=== PATIENT | male | born 1980 | race Caucasian/White ===

== ENCOUNTER 2016-09-14 20:25 | Emergency (ER) | payer OTHER ==
[2016-09-14 20:36] VITALS: BP 178/79; PULSE 94; RESP 18; TEMP 97.7
--- NOTE | 2016-09-14 21:00 | ED ---
Alcohol HPI - General Chief Complaint: Alcohol Stated Complaint: fall/vomiting/ETOH Time Seen by Provider: 09/14/16 20:30 Source: patient, RN notes reviewed Mode of arrival: EMS Limitations: no limitations - History of Present Illness Initial Comments: 35 yo male presents to the ER with cc of alcohol. The patient was found to be intoxicated. Patient was brought in by EMS due to friends calling due to the patient being intoxicated. Patient has no complaints. Patient's family is at bedside. - Related Data Home Medications Medication Instructions Recorded Confirmed No Known Home Medications [No 09/14/16 09/14/16 Known Home Medications] Allergies Allergy/AdvReac Type Severity Reaction Status Date / Time acetaminophen [From Tylenol] Allergy Altered Verified 09/14/16 20:36 Mental Status Review of Systems ROS Statement: Those systems with pertinent positive or pertinent negative responses have been documented in the HPI. ROS Other: All systems not noted in ROS Statement are negative. Past Medical History Past Medical History: Hypertension History of Any Multi-Drug Resistant Organisms: None Reported Past Surgical History: No Surgical Hx Reported Past Psychological History: No Psychological Hx Reported Smoking Status: Current every day smoker Past Alcohol Use History: Occasional Past Drug Use History: None Reported General Exam Limitations: no limitations General appearance: alert, in no apparent distress Head exam: Present: other (Does have an abrasion to the forehead.) Eye exam: Present: normal appearance, PERRL, EOMI. Absent: scleral icterus, conjunctival injection, periorbital swelling ENT exam: Present: normal exam, mucous membranes moist Neck exam: Present: normal inspection. Absent: tenderness, meningismus, lymphadenopathy Respiratory exam: Present: normal lung sounds bilaterally. Absent: respiratory distress, wheezes, rales, rhonchi, stridor Cardiovascular Exam: Present: regular rate, normal rhythm, normal heart sounds. Absent: systolic murmur, diastolic murmur, rubs, gallop, clicks Neurological exam: Present: alert, oriented X3 Psychiatric exam: Present: agitated Skin exam: Present: warm, dry Course Vital Signs 09/14/16 20:32 Temperature 97.7 F Pulse Rate 94 Respiratory 18 Rate Blood Pressure 178/79 O2 Sat by Pulse 94 L Oximetry Medical Decision Making - Medical Decision Making 35-year-old male presents with chief complaint of alcohol use. At this time patient does have an abrasion to the head and he does not know if he hit his head or not. We did offer a CAT scan. Patient became very agitated and angry upon this. Family states that they would like to take him home. At this time family does take responsibility for the patient for the mother. We states that there was a risk to leaving. We discussed this could lead to possible if not serious brain injury if the hand injury to cause any internal damage which we are unable to tell due to the fact we do not have a CAT scan. Family stated they understood the risks that they still would like to take the patient home. At this time they did leave AGAINST MEDICAL ADVICE. Disposition Clinical Impression: Alcoholic intoxication Disposition: Left Against Medical Advice
== END 2016-09-14 21:02 | disposition left against medical advice (07) ==
LOC: EC 20:25
DX: F10.129 Alcohol abuse with intoxication, unspecified (principal); S00.81XA Abrasion of other part of head, initial encounter; F17.200 Nicotine dependence, unspecified, uncomplicated; Z88.6 Allergy status to analgesic agent; W01.10XA Fall on same level from slipping, tripping and stumbling with subsequent striking against unspecified object, initial encounter
CPT/HCPCS: 99284

== ENCOUNTER 2019-02-22 14:13 | Emergency (ER) | payer OTHER ==
[2019-02-22 14:23] VITALS: TEMP 98
[2019-02-22 15:16] VITALS: RESP 18
--- NOTE | 2019-02-22 15:30 | XR ---
EXAMINATION TYPE: XR chest 2V DATE OF EXAM: 02/22/2019 COMPARISON: NONE HISTORY: Chest pain and dizziness. Dysrhythmia. TECHNIQUE: Frontal and lateral views of the chest are obtained. FINDINGS: Overlying EKG leads are seen. Low lung volumes are noted. There is no focal air space opac ity, pleural effusion, or pneumothorax seen. The cardiac silhouette size is within normal limits. Ex aggerated kyphosis with multilevel spurring. IMPRESSION: No acute cardiopulmonary process.
[2019-02-22 15:34] LABS: INR 0.9 (<1.2); Partial Thromboplastin Time 25.1 sec (22.0-30.0); Prothrombin Time 9.8 sec (9.0-12.0)
[2019-02-22 15:35] LABS: ALT 31 U/L (21-72); AST 27 U/L (17-59); African American GFR (CKD) >90 (>60 ml/min/1.73 sqM); Albumin 3.5 g/dL (3.5-5.0); Alkaline Phosphatase 70 U/L (38-126); Anion Gap 5 mmol/L; Blood Urea Nitrogen 14 mg/dL (9-20); Carbon Dioxide 27 mmol/L (22-30); Chloride 106 mmol/L (98-107); Glucose 140 mg/dL (74-99); Magnesium 2.1 mg/dL (1.6-2.3); Potassium 4.4 mmol/L (3.5-5.1); Sodium 138 mmol/L (137-145); Total Bilirubin 0.3 mg/dL (0.2-1.3); Total Protein 6.9 g/dL (6.3-8.2)
[2019-02-22 15:36] LABS: Basophils # (A) 0.1 k/uL (0-0.2); Basophils % (A) 1 %; Eosinophils # (A) 0.2 k/uL (0-0.7); Eosinophils % (A) 2 %; HCT 48.7 % (39.0-53.0); HGB 17.3 gm/dL (13.0-17.5); Lymphocytes # (A) 1.9 k/uL (1.0-4.8); Lymphocytes % (A) 23 %; MCH 30.5 pg (25.0-35.0); MCHC 35.6 g/dL (31.0-37.0); MCV 85.5 fL (80.0-100.0); Mean Platelet Volume 6.2; Monocytes # (A) 0.4 k/uL (0-1.0); Monocytes % (A) 5 %; Neutrophils # (A) 5.5 k/uL (1.3-7.7); Neutrophils % (A) 67 %; Platelet Count 239 k/uL (150-450); RBC 5.69 m/uL (4.30-5.90); RDW 12.4 % (11.5-15.5); WBC 8.2 k/uL (3.8-10.6)
--- NOTE | 2019-02-22 15:46 | CT ---
EXAMINATION TYPE: CT brain wo con DATE OF EXAM: 02/22/2019 COMPARISON: NONE HISTORY: Headache without injury CT DLP: 1158.4 mGycm. Automated Exposure Control for Dose Reduction was Utilized. TECHNIQUE: CT scan of the head is performed without contrast. FINDINGS: There is no acute intracranial hemorrhage, mass effect, or midline shift identified. The ventricles and sulci are within normal limits in size. The globes are intact. Mild mucosal thickeni ng is seen within the ethmoid sinuses and maxillary sinuses. Remaining paranasal sinuses and mastoid air cells are well aerated. IMPRESSION: No acute intracranial hemorrhage, mass effect, or midline shift is seen. Mild paranasal sinus disease.
[2019-02-22] MEDS ORDERED: METOCLOPRAMIDE 5 MG/ML 2 ML VIAL IVP STA (16:21)
[2019-02-22] MEDS ORDERED: KETOROLAC 30 MG/ML 1 ML VIAL IVP STA (16:21)
[2019-02-22] MEDS ORDERED: diphenhydrAMINE 50 MG/ML 1 ML VIAL IVP STA (16:21)
[2019-02-22] MEDS ORDERED: hydrALAZINE HCL 20 MG/ML 1 ML VIAL IVP STA (16:31)
--- NOTE | 2019-02-22 16:31 | ED ---
Arrhythmia/Palpitations HPI - General Chief Complaint: Arrhythmia/Palpitations Stated Complaint: Headache, Heart Palpitations, Dizzy Time Seen by Provider: 02/22/19 14:41 Source: patient Mode of arrival: wheelchair Limitations: no limitations - History of Present Illness Initial Comments: 38-year-old male presenting for multiple complaints. Patient states since Friday he has had a dull aching headache and left-sided as well as palpitations that worsen when lying flat at night. Patient denies any chest pain he denies shortness of breath does admit to lightheaded sensation on and off which she did experience today while at work. Patient denies any chest pressure while ambulating he denies any jaw pain or upper extremity paresthesias. Patient de nies any nausea or epigastric pain. Patient has a visual changes diplopia of rest or symptoms fevers neck stiffness. Patient denies any injury or trauma to the head. Patient denies history of diabetes or hypertension however is found to be hypertensive upon arrival. Patient denies any decrease in urine output abdominal pain or masses. Patient denies any weakness of the upper or lower extremities or sensation deficits. When symptoms are persistent today and felt as best he presents emergency room for further evaluation. Upon arrival patient blood pressure elevated heart rate elevated however patient appears well signs of acute distress. - Related Data Home Medications Medication Instructions Recorded Confirmed Ascorbic Acid [Vitamin C] 500 mg PO DAILY 02/22/19 02/22/19 Cinnamon Bark [Cinnamon] 500 mg PO DAILY 02/22/19 02/22/19 Garlic 1 tab PO DAILY 02/22/19 02/22/19 Ibuprofen [Advil] 600 mg PO Q8HR PRN 02/22/19 02/22/19 Multivitamins, Thera [Multivitamin 1 tab PO DAILY 02/22/19 02/22/19 (formulary)] Allergies Allergy/AdvReac Type Severity Reaction Status Date / Time acetaminophen [From Tylenol] Allergy Altered Verified 02/22/19 14:23 Mental Status Review of Systems ROS Statement: Those systems with pertinent positive or pertinent negative responses have been documented in the HPI. ROS Other: All systems not noted in ROS Statement are negative. Past Medical History Past Medical History: Hypertension History of Any Multi-Drug Resistant Organisms: None Reported Past Surgical History: No Surgical Hx Reported Past Psychological History: No Psychological Hx Reported Smoking Status: Current every day smoker Past Alcohol Use History: Occasional Past Drug Use History: None Reported General Exam - General Exam Comments Initial Comments: General: The patient is awake and alert, in no distress, and does not appear acutely ill. Eye: +3 mm pupils are equal, round and reactive to light, extra-ocular movements are intact. No nystagmus. There is normal conjunctiva bilaterally. No signs of icterus. Ears, nose, mouth and throat: There are moist mucous membranes and no oral lesions. Neck: The neck is supple, there is no tenderness or JVD. Cardiovascular: There is a regular rate and rhythm. No murmur, rub or gallop is appreciated. Respiratory: Lungs are clear to auscultation, respirations are non-labored, breath sounds are equal. No wheezes, stridor, rales, or rhonchi. Gastrointestinal: Soft, non-distended, non-tender abdomen without masses or organomegaly noted. There is no rebound or guarding present. No masses. Musculoskeletal: Normal ROM, no tenderness. Strength 5/5 of the UE and LE b/l. Sensation intact. Radial and DP pulses equal bilaterally 2+. Neurological: A&O x 3. CN II-XII intact, There are no obvious motor or sensory deficits. Coordination appears grossly intact. Speech is normal. Skin: Skin is warm and dry and no rashes or lesions are noted. Psychiatric: Cooperative, appropriate mood & affect, normal judgment. Limitations: no limitations Course Vital Signs 02/22/19 02/22/19 02/22/19 14:21 15:15 17:00 Temperature 98.0 F Pulse Rate 102 H 76 103 H Respiratory 20 18 18 Rate Blood Pressure 161/103 176/114 137/99 O2 Sat by Pulse 98 97 98 Oximetry 02/22/19 17:40 Temperature 98.0 F Pulse Rate 90 Respiratory 18 Rate Blood Pressure 160/98 O2 Sat by Pulse 98 Oximetry EKG Findings - EKG Comments: EKG Findings:: Ventricular rate 89 bpm, IA interval 138 ms, which faith 90 ms the QT/QTC 364/442. This is normal sinus rhythm no ST elevation or depression. EKG personally reviewed and interpreted-this EKG was reviewed and interpreted by my attending provider Dr. Newell Medical Decision Making - Medical Decision Making Well-appearing 38-year-old male presented emergency department for evaluation of headache palpitations since Friday. Patient denies chest pain or shortness of breath. Patient does admit to occasional lightheaded sensation. His symptoms occurring at night. Troponin negative. No ST elevation or depression on EKG. Patient had CT of the brain obtained revealing no signs of acute intracranial process. Patient is no meningeal irritation signs of focal neurological deficit. Chest x-ray clear no murmur on examination no lower extremity edema. I discussed the case including vital signs, EKG laboratory studies history past medical history with my attending provider. At this time we do feel patient is stable for discharge with outpatient primary care follow-up I did recommend a Holter monitor for these episodes. Patient states he'll follow up with his primary care provider tomorrow. Patient is to immediately return to emergency department if he develops symptoms again. Patient was symptom-free upon discharge. - Lab Data Result diagrams: 02/22/19 15:15 02/22/19 15:15 Lab Results 02/22/19 02/22/19 02/22/19 Range/Units 15:15 15:15 15:15 WBC 8.2 (3.8-10.6) k/uL RBC 5.69 (4.30-5.90) m/uL Hgb 17.3 (13.0-17.5) gm/dL Hct 48.7 (39.0-53.0) % MCV 85.5 (80.0-100.0) fL MCH 30.5 (25.0-35.0) pg MCHC 35.6 (31.0-37.0) g/dL RDW 12.4 (11.5-15.5) % Plt Count 239 (150-450) k/uL Neutrophils % 67 % Lymphocytes % 23 % Monocytes % 5 % Eosinophils % 2 % Basophils % 1 % Neutrophils # 5.5 (1.3-7.7) k/uL Lymphocytes # 1.9 (1.0-4.8) k/uL Monocytes # 0.4 (0-1.0) k/uL Eosinophils # 0.2 (0-0.7) k/uL Basophils # 0.1 (0-0.2) k/uL PT 9.8 (9.0-12.0) sec INR 0.9 (<1.2) APTT 25.1 (22.0-30.0) sec Sodium 138 (137-145) mmol/L Potassium 4.4 (3.5-5.1) mmol/L Chloride 106 (98-107) mmol/L Carbon Dioxide 27 (22-30) mmol/L Anion Gap 5 mmol/L BUN 14 (9-20) mg/dL Creatinine 1.01 (0.66-1.25) mg/dL Est GFR (CKD-EPI)AfAm >90 (>60 ml/min/1.73 sqM) Est GFR (CKD-EPI)NonAf >90 (>60 ml/min/1.73 sqM) Glucose 140 H (74-99) mg/dL Calcium 9.0 (8.4-10.2) mg/dL Magnesium 2.1 (1.6-2.3) mg/dL Total Bilirubin 0.3 (0.2-1.3) mg/dL AST 27 (17-59) U/L ALT 31 (21-72) U/L Alkaline Phosphatase 70 (38-126) U/L Troponin I (0.000-0.034) ng/mL Total Protein 6.9 (6.3-8.2) g/dL Albumin 3.5 (3.5-5.0) g/dL TSH 0.920 (0.465-4.680) mIU/L Urine Color Urine Appearance (Clear) Urine pH (5.0-8.0) Ur Specific [place] (1.001-1.035) Urine Protein (Negative) Urine Glucose (UA) (Negative) Urine Ketones (Negative) Urine Blood (Negative) Urine Nitrite (Negative) Urine Bilirubin (Negative) Urine Urobilinogen (<2.0) mg/dL Ur Leukocyte Esterase (Negative) Urine Opiates Screen (NotDetected) Ur Oxycodone Screen (NotDetected) Urine Methadone Screen (NotDetected) Ur Propoxyphene Screen (NotDetected) Ur Barbiturates Screen (NotDetected) U Tricyclic Antidepress (NotDetected) Ur Phencyclidine Scrn (NotDetected) Ur Amphetamines Screen (NotDetected) U Methamphetamines Scrn (NotDetected) U Benzodiazepines Scrn (NotDetected) Urine Cocaine Screen (NotDetected) U Marijuana (THC) Screen (NotDetected) 02/22/19 02/22/19 Range/Units 15:15 17:30 WBC (3.8-10.6) k/uL RBC (4.30-5.90) m/uL Hgb (13.0-17.5) gm/dL Hct (39.0-53.0) % MCV (80.0-100.0) fL MCH (25.0-35.0) pg MCHC (31.0-37.0) g/dL RDW (11.5-15.5) % Plt Count (150-450) k/uL Neutrophils % % Lymphocytes % % Monocytes % % Eosinophils % % Basophils % % Neutrophils # (1.3-7.7) k/uL Lymphocytes # (1.0-4.8) k/uL Monocytes # (0-1.0) k/uL Eosinophils # (0-0.7) k/uL Basophils # (0-0.2) k/uL PT (9.0-12.0) sec INR (<1.2) APTT (22.0-30.0) sec Sodium (137-145) mmol/L Potassium (3.5-5.1) mmol/L Chloride (98-107) mmol/L Carbon Dioxide (22-30) mmol/L Anion Gap mmol/L BUN (9-20) mg/dL Creatinine (0.66-1.25) mg/dL Est GFR (CKD-EPI)AfAm (>60 ml/min/1.73 sqM) Est GFR (CKD-EPI)NonAf (>60 ml/min/1.73 sqM) Glucose (74-99) mg/dL Calcium (8.4-10.2) mg/dL Magnesium (1.6-2.3) mg/dL Total Bilirubin (0.2-1.3) mg/dL AST (17-59) U/L ALT (21-72) U/L Alkaline Phosphatase (38-126) U/L Troponin I <0.012 (0.000-0.034) ng/mL Total Protein (6.3-8.2) g/dL Albumin (3.5-5.0) g/dL TSH (0.465-4.680) mIU/L Urine Color Yellow Urine Appearance Clear (Clear) Urine pH 6.0 (5.0-8.0) Ur Specific [place] 1.020 (1.001-1.035) Urine Protein Negative (Negative) Urine Glucose (UA) Negative (Negative) Urine Ketones Negative (Negative) Urine Blood Negative (Negative) Urine Nitrite Negative (Negative) Urine Bilirubin Negative (Negative) Urine Urobilinogen 2.0 (<2.0) mg/dL Ur Leukocyte Esterase Negative (Negative) Urine Opiates Screen Not Detected (NotDetected) Ur Oxycodone Screen Not Detected (NotDetected) Urine Methadone Screen Not Detected (NotDetected) Ur Propoxyphene Screen Not Detected (NotDetected) Ur Barbiturates Screen Not Detected (NotDetected) U Tricyclic Antidepress Not Detected (NotDetected) Ur Phencyclidine Scrn Not Detected (NotDetected) Ur Amphetamines Screen Not Detected (NotDetected) U Methamphetamines Scrn Not Detected (NotDetected) U Benzodiazepines Scrn Not Detected (NotDetected) Urine Cocaine Screen Not Detected (NotDetected) U Marijuana (THC) Screen Not Detected (NotDetected) Disposition Clinical Impression: Heart palpitations, Elevated blood pressure reading, Elevated glucose, Headache Disposition: HOME SELF-CARE Condition: Good Instructions (If sedation given, give patient instructions): Heart Palpitations (ED) Additional Instructions: Please use medication as discussed. Please follow-up with family doctor in the next 2 days, recommend cardiology evaluation for stress test. Please return to emergency room if the symptoms increase or worsen or for any other concerns. Is patient prescribed a controlled substance at d/c from ED?: No Referrals: None,Stated [Primary Care Provider] - [facility] days [facility] - 1-2 days Time of Disposition: 17:28
[2019-02-22 17:41] VITALS: BP 160/98; PULSE 90
[2019-02-22 17:41] LABS: Appearance,Urine Clear (Clear); Bilirubin,Urine Negative (Negative); Blood,Urine Negative (Negative); Color,Urine Yellow; Glucose,Urine (UA) Negative (Negative); Ketones,Urine Negative (Negative); Leukocyte Esterase,Urine Negative (Negative); Nitrite,Urine Negative (Negative); Protein,Urine Negative (Negative)
[2019-02-22 17:53] LABS: Amphetamine Screen,Urine Not Detected (NotDetected); Barbiturate Screen,Urine Not Detected (NotDetected); Benzodiazepines Screen,Urine Not Detected (NotDetected); Cocaine Screen,Urine Not Detected (NotDetected); Methadone Screen, Urine Not Detected (NotDetected); Opiate Screen,Urine Not Detected (NotDetected); Oxycodone Screen, Urine Not Detected (NotDetected); Phencyclidine Screen,Urine Not Detected (NotDetected); Tricyclic Antidepressant,Urine Not Detected (NotDetected); Urn Cannabinoid Scrn Not Detected (NotDetected)
== END 2019-02-22 17:41 | disposition home or self-care (01) ==
LOC: EC 14:13
DX: R73.9 Hyperglycemia, unspecified (principal); R03.0 Elevated blood-pressure reading, without diagnosis of hypertension; R00.2 Palpitations; R51 Headache; I10 Essential (primary) hypertension; F17.200 Nicotine dependence, unspecified, uncomplicated; Z79.899 Other long term (current) drug therapy; Z88.6 Allergy status to analgesic agent; Z53.20 Procedure and treatment not carried out because of patient's decision for unspecified reasons
CPT/HCPCS: 36415; 93005; 80053; 83735; 84443; 84484; 85025; 85610; 85730; 81003; 80306; 71046; 70450; 99285; 96374; 96375 ×2; J0360; J2765; J1885

== ENCOUNTER 2020-12-31 21:42 | Emergency (ER) | payer OTHER ==
[2020-12-31 22:00] VITALS: RESP 20; TEMP 98
[2020-12-31] MEDS ORDERED: LABETALOL 5 MG/ML VIAL MDV IVP STA (22:50)
--- NOTE | 2020-12-31 22:50 | ED ---
Chest Pain HPI - General Chief Complaint: Chest Pain Stated Complaint: chest pain; facial and arm numbness Time Seen by Provider: 12/31/20 22:20 Source: patient Mode of arrival: wheelchair Limitations: no limitations - History of Present Illness Initial Comments: This patient is a 40-year-old man who presents to be evaluated for substernal chest pain that radiates to his left back. The patient states had come on around 8:30. He had just walked and to his house from being outside. The patient states that the pain is moderate, aching, and worse with movements. Also worse with taking deep breaths. He has not noted relieving factors. No associated symptoms. He had a similar episode last week while at work. He has not noted an exertional component. MD Complaint: chest pain Onset/Timin -: hour(s) Onset: during rest Pain Location: substernal Pain Radiation: back Severity: moderate Quality: aching Consistency: constant Improves With: nothing Worsens With: movement Treatments Prior to Arrival: none - Related Data Previous Rx's Medication Instructions Recorded lisinopriL 10 mg PO DAILY #30 tablet 01/01/21 Allergies Allergy/AdvReac Type Severity Reaction Status Date / Time acetaminophen [From Tylenol] AdvReac Altered Verified 12/31/20 22:39 Mental Status Review of Systems ROS Statement: Those systems with pertinent positive or pertinent negative responses have been documented in the HPI. ROS Other: All systems not noted in ROS Statement are negative. Constitutional: Denies: fever, chills Respiratory: Denies: cough, dyspnea, wheezes, hemoptysis Cardiovascular: Reports: chest pain. Denies: palpitations, dyspnea on exertion, orthopnea, edema, syncope Gastrointestinal: Denies: abdominal pain, nausea, vomiting Genitourinary: Denies: dysuria, hematuria Musculoskeletal: Denies: back pain Skin: Denies: rash Neurological: Denies: headache, weakness EKG Findings - EKG Results: EKG: interpreted by NICOL VICTORIA, sinus rhythm (Rate 80 bpm), normal axis, normal QRS, normal ST/T, no acute changes - OK, Pacemaker, Normal: Normal tracing: normal tracing Past Medical History Past Medical History: Hypertension History of Any Multi-Drug Resistant Organisms: None Reported Past Surgical History: No Surgical Hx Reported Past Psychological History: No Psychological Hx Reported Smoking Status: Current every day smoker Past Alcohol Use History: Occasional Past Drug Use History: None Reported General Exam Limitations: no limitations General appearance: alert, in no apparent distress Head exam: Present: atraumatic, normocephalic Eye exam: Present: normal appearance. Absent: scleral icterus, conjunctival injection ENT exam: Present: normal oropharynx Neck exam: Present: normal inspection Respiratory exam: Present: normal lung sounds bilaterally, chest wall tenderness. Absent: respiratory distress, wheezes, rales, rhonchi, stridor, accessory muscle use Cardiovascular Exam: Present: regular rate, normal rhythm, normal heart sounds. Absent: systolic murmur, diastolic murmur, rubs, gallop GI/Abdominal exam: Present: soft. Absent: distended, tenderness, guarding, rebound, rigid, mass Extremities exam: Present: normal inspection, normal capillary refill. Absent: pedal edema, calf tenderness Back exam: Present: normal inspection. Absent: CVA tenderness (R), CVA tenderness (L) Neurological exam: Present: alert Skin exam: Present: warm, dry, intact, normal color. Absent: rash Course Vital Signs 12/31/20 12/31/20 12/31/20 21:56 22:00 23:23 Temperature 98.0 F Pulse Rate 89 88 77 Respiratory 20 20 20 Rate Blood Pressure 192/114 179/115 153/93 O2 Sat by Pulse 100 97 96 Oximetry 01/01/21 00:17 Temperature Pulse Rate 78 Respiratory 20 Rate Blood Pressure 133/86 O2 Sat by Pulse 98 Oximetry Chest Pain MDM - MDM This patient is a 40-year-old man with atypical chest pain. He does however have a number of risk factors including smoking history and family history. I discussed admission for overnight monitoring, repeat troponins, cardiac consultation, but at this point the patient is refusing this. He would like to go home and follow-up. I will restart his hypertension medication. Patient will return should he experience any new symptoms. Disposition Clinical Impression: Chest pain, Hypertension, Hyperglycemia Disposition: Left Against Medical Advice Condition: Fair Instructions (If sedation given, give patient instructions): Chest Pain (ED), H ypertension (ED) Prescriptions: lisinopriL 10 mg PO DAILY #30 tablet Is patient prescribed a controlled substance at d/c from ED?: No Referrals: None,Stated [Primary Care Provider] - 1-2 days
--- NOTE | 2020-12-31 22:58 | XR ---
EXAMINATION TYPE: XR chest 2V DATE OF EXAM: 12/31/2020 COMPARISON: 02/22/2019 HISTORY: Chest pain TECHNIQUE: FINDINGS: Heart and mediastinum are normal. Lungs are clear. Diaphragm is normal. Bony thorax is inta ct. There is some thoracolumbar mild chronic kyphotic deformity. IMPRESSION: No active cardiopulmonary disease. Normal heart. No change.
[2020-12-31 22:59] LABS: Basophils # (A) 0.1 k/uL (0-0.2); Basophils % (A) 1 %; Eosinophils # (A) 0.2 k/uL (0-0.7); Eosinophils % (A) 2 %; HCT 46.3 % (39.0-53.0); HGB 16.7 gm/dL (13.0-17.5); Lymphocytes # (A) 2.6 k/uL (1.0-4.8); Lymphocytes % (A) 27 %; MCH 30.4 pg (25.0-35.0); MCHC 36.1 g/dL (31.0-37.0); Mean Platelet Volume 7.3; Monocytes # (A) 0.4 k/uL (0-1.0); Monocytes % (A) 4 %; Neutrophils # (A) 6.3 k/uL (1.3-7.7); Neutrophils % (A) 65 %; Platelet Count 253 k/uL (150-450); RBC 5.51 m/uL (4.30-5.90); RDW 12.9 % (11.5-15.5); WBC 9.7 k/uL (3.8-10.6)
[2020-12-31 23:14] LABS: ALT 34 U/L (4-49); AST 37 U/L (17-59); African American GFR (CKD) >90 (>60 ml/min/1.73 sqM); Albumin 3.7 g/dL (3.5-5.0); Alkaline Phosphatase 79 U/L (38-126); Amylase 52 U/L (30-110); Anion Gap 8 mmol/L; Blood Urea Nitrogen 13 mg/dL (9-20); Carbon Dioxide 24 mmol/L (22-30); Chloride 103 mmol/L (98-107); Glucose 212 mg/dL (74-99); Lipase 191 U/L (23-300); Non-African American GFR(CKD) >90 (>60 ml/min/1.73 sqM); Sodium 135 mmol/L (137-145); Total Bilirubin 0.5 mg/dL (0.2-1.3); Total Protein 6.8 g/dL (6.3-8.2)
[2020-12-31 23:19] LABS: INR 0.9 (<1.2); Partial Thromboplastin Time 22.9 sec (22.0-30.0)
[2021-01-01 00:09] LABS: Potassium 3.8 mmol/L (3.5-5.1)
[2021-01-01 01:11] VITALS: BP 130/86; PULSE 90
== END 2021-01-01 01:11 | disposition left against medical advice (07) ==
LOC: EC 21:42
DX: R07.89 Other chest pain (principal); I10 Essential (primary) hypertension; R73.9 Hyperglycemia, unspecified; R20.0 Anesthesia of skin; F17.200 Nicotine dependence, unspecified, uncomplicated; Z88.6 Allergy status to analgesic agent
CPT/HCPCS: 36415; 71046; 80053; 82150; 83690; 83735; 84484; 85025; 85379; 85610; 85730; 93005; 96374; 99285

== ENCOUNTER 2022-09-05 15:30 | Emergency (ER) | payer OTHER ==
[2022-09-05 15:42] VITALS: TEMP 98.3
[2022-09-05 16:17] VITALS: BP 160/80; RESP 16
[2022-09-05] MEDS ORDERED: KETOROLAC 15 MG/ML 1 ML VIAL IM STA (16:34)
--- NOTE | 2022-09-05 16:35 | XR ---
EXAMINATION TYPE: XR ankle complete RT, XR foot complete RT DATE OF EXAM: 09/05/2022 4:27 PM INDICATION: Patient age:Male; 41 years old; Reason for study: fall swelling bruising; COMPARISON: None TECHNIQUE: The right foot and ankle is imaged in frontal, lateral and oblique projections. FINDINGS: There is no evidence of acute osseous pathology. The joint spaces are well-preserved without evidenc e of subluxation or dislocation. Kager's fat pad is intact. Mild soft tissue swelling around the ankl e. No radiopaque foreign bodies are identified. Mild calcaneal Achilles enthesophyte posteriorly. IMPRESSION: 1. No evidence of acute fracture. 2. Subcutaneous swelling around the ankle likely secondary to underlying soft tissue injury.
--- NOTE | 2022-09-05 16:44 | ED ---
Lower Extremity Injury HPI - General Chief Complaint: Extremity Injury, Lower Stated Complaint: R ankle/foot injury Time Seen by Provider: 09/05/22 16:14 Source: patient Mode of arrival: ambulatory Limitations: no limitations - History of Present Illness Initial Comments: Patient is a 41-year-old male presenting to the emergency department for right ankle pain. Patient twisted his ankle while working on a chicken coop today. Patient has pain on the outside of his ankle which is significantly worsened with ambulation. He denies numbness and tingling. Denies other injury - Related Data Previous Rx's Medication Instructions Recorded lisinopriL [Prinivil] 10 mg PO DAILY #30 tablet 01/01/21 Ibuprofen [Motrin] 800 mg PO Q8HR PRN #30 tab 09/05/22 Allergies Allergy/AdvReac Type Severity Reaction Status Date / Time acetaminophen [From Tylenol] AdvReac Altered Verified 09/05/22 15:42 Mental Status Review of Systems ROS Statement: Those systems with pertinent positive or pertinent negative responses have been documented in the HPI. ROS Other: All systems not noted in ROS Statement are negative. Past Medical History Past Medical History: Hypertension History of Any Multi-Drug Resistant Organisms: None Reported Past Surgical History: No Surgical Hx Reported Past Psychological History: No Psychological Hx Reported Smoking Status: Current every day smoker Past Alcohol Use History: Occasional Past Drug Use History: None Reported General Exam Limitations: no limitations General appearance: alert Head exam: Present: atraumatic, normocephalic, normal inspection Respiratory exam: Present: normal lung sounds bilaterally. Absent: respiratory distress, wheezes, rales, rhonchi, stridor Cardiovascular Exam: Present: regular rate, normal rhythm, normal heart sounds. Absent: systolic murmur, diastolic murmur, rubs, gallop, clicks Extremities exam: Present: other (Moderate swelling and tenderness of right lateral ankle without erythema, ecchymosis, warmth, deformity. DP 2+. sensation intact. Full range of motion. Pain with ankle eversion) Neurological exam: Present: alert, oriented X3, CN II-XII intact Psychiatric exam: Present: normal affect, normal mood Skin exam: Present: warm, dry, intact, normal color. Absent: rash Course Vital Signs 09/05/22 09/05/22 09/05/22 15:39 15:42 17:01 Temperature 98.3 F Pulse Rate 81 80 68 Respiratory 20 16 16 Rate Blood Pressure 160/79 160/80 160/80 O2 Sat by Pulse 99 98 98 Oximetry Procedures - Orthopedic Splinting/Casting Injury #1 Lower Extremity Immobilizer: AirCast Other Orthopedic Equipment: crutches Medical Decision Making - Medical Decision Making Was pt. sent in by a medical professional or institution (CARLEE Bartlett, LAW FIRM CONSULTANT, urgent care, hospital, or penitentiary...) When possible be specific @ -No Did you speak to anyone other than the patient for history (EMS, parent, family, police, friend...)? What history was obtained from this source @ -No Did you review nursing and triage notes (agree or disagree)? Why? @ -I reviewed and agree with nursing and triage notes Were old charts reviewed (outside hosp., previous admission, EMS record, old EKG, old radiological studies, urgent care reports/EKG's, penitentiary records)? Report findings @ -No old charts were reviewed Differential Diagnosis (chest pain, altered mental status, abdominal pain women, abdominal pain men, vaginal bleeding, weakness, fever, dyspnea, syncope, headache, dizziness, GI bleed, back pain, seizure, CVA, palpatations, mental health)? @ -Ankle fracture, ankle sprain, foot sprain, foot fracture, contusion EKG interpreted by me (3pts min.). @ -As above X-rays interpreted by me (1pt min.). @ -Yes, x-ray negative for fracture and dislocation there is soft tissue injury CT interpreted by me (1pt min.). @ -None done U/S interpreted by me (1pt. min.). @ -None done What testing was considered but not performed or refused? (CT, X-rays, U/S, labs)? Why? @ -None What meds were considered but not given or refused? Why? @ -None] Did you discuss the management of the patient with other professionals (professionals i.e. CARLEE Bartlett, LAW FIRM CONSULTANT, lab, RT, psych nurse, manager social responsibility, chemical etching processor, teacher, disability liaison officer, outsole caser)? Give summary @ -[No] Was smoking cessation discussed for >3mins.? @ -[No] Was critical care preformed (if so, how long)? @ -[No] Were there social determinants of health that impacted care today? How? (Homelessness, low income, unemployed, alcoholism, drug addiction, transportation, low edu. Level, literacy, decrease access to med. care, care home, rehab)? @ -[No] Was there de-escalation of care discussed even if they declined (Discuss DNR or withdrawal of care, Hospice)? DNR status @ -[No] What co-morbidities impacted this encounter? (DM, HTN, Smoking, COPD, CAD, Cancer, CVA, ARF, Chemo, Hep., AIDS, mental health diagnosis, sleep apnea, morbid obesity)? @ -[None] Was patient admitted / discharged? Hospital course, mention meds given and route, prescriptions, significant lab abnormalities, going to OR and other pertinent info. @ -Patient presenting with right ankle injury. X-rays negative for fracture and dislocation I suspect moderate ankle sprain. Patient placed in an Aircast splint and given crutches he will bear weight as tolerated and follow up with help desk specialist Undiagnosed new problem with uncertain prognosis? @ -[No] Drug Therapy requiring intensive monitoring for toxicity (Heparin, Nitro, Insulin, Cardizem)? @ -[No] Were any procedures done? @ -Yes, splint Diagnosis/symptom? @ -[default] Acute, or Chronic, or Acute on Chronic? @ -[Right ankle sprain Uncomplicated (without systemic symptoms) or Complicated (systemic symptoms)? @ -[default] Side effects of treatment? @ -[No] Exacerbation, Progression, or Severe Exacerbation? @ -[No] Poses a threat to life or bodily function? How? (Chest pain, [place], [place], pneumonia, PE, COPD, DKA, ARF, appy, cholecystitis, CVA, Diverticulitis, Homicidal, Suicidal, threat to staff... and all critical care pts) @ -[No] Dr. Warner is my attending Disposition Clinical Impression: Right ankle sprain Disposition: HOME SELF-CARE Condition: Good Instructions (If sedation given, give patient instructions): Ankle Sprain (ED) Additional Instructions: Rest and elevate the joint as much as possible. Ice the injury for the next 24- 48 hours. If symptoms continue after, apply warm compress. Take Motrin as directed for pain. Keep splint on, use crutches, and bear weight as tolerated. Follow-up with help desk specialist in 1 to 2 days. Return to the emergency department if you experience new, concerning, or worsening symptoms. Prescriptions: Ibuprofen [Motrin] 800 mg PO Q8HR PRN #30 tab PRN Reason: Pain Is patient prescribed a controlled substance at d/c from ED?: No Referrals: None,Stated [REFERRING] - 1-2 days Reece Delgadillo MD [STAFF PHYSICIAN] - 1-2 days
[2022-09-05 17:02] VITALS: PULSE 68
== END 2022-09-05 17:02 | disposition home or self-care (01) ==
LOC: EC 15:30
DX: S93.401A Sprain of unspecified ligament of right ankle, initial encounter (principal); I10 Essential (primary) hypertension; F17.200 Nicotine dependence, unspecified, uncomplicated; Z88.6 Allergy status to analgesic agent; X50.1XXA Overexertion from prolonged static or awkward postures, initial encounter
CPT/HCPCS: 99283 ×2; 29515; 96372 ×2; 73610; 73630; J1885